=== PATIENT | female | born 1930 | race Caucasian/White ===

== ENCOUNTER 2016-09-19 09:10 | Emergency (ER) | payer MEDICARE, OTHER ==
[2013-09-24 12:06] VITALS: BMI 23.4
[~2016-09-19 09:10] MED LIST: AMPICILLIN TRI500 MG PO; FLAGYL500 MG PO; HYZAAR 50-12.51 TAB PO; KLOR-CON20 MEQ/PKT PO; LEVAQUIN250 MG PO; NORCO 10/325 TA1 TA1 PO; PRAVACHOL20 MG PO; PROTONIX40 MG PO; SOMA350 MG PO; XANAX0.5 MG PO
== END 2016-09-19 10:53 | disposition home or self-care (01) ==
LOC: D.ER 09:10
DX: M54.5 Low back pain (principal); M51.36 Other intervertebral disc degeneration, lumbar region; I10 Essential (primary) hypertension

== ENCOUNTER 2016-09-26 22:54 | Emergency (ER) | payer MEDICARE, OTHER, BC ==
[2013-09-24 12:06] VITALS: BMI 23.4
== END 2016-09-26 23:38 | disposition home or self-care (01) ==
LOC: D.ER 22:54
DX: M54.5 Low back pain (principal); M62.830 Muscle spasm of back; I10 Essential (primary) hypertension

== ENCOUNTER → 2016-10-09 | Emergency (ER) | payer MEDICARE, OTHER, BC ==
[2013-09-24 12:06] VITALS: BMI 23.4
== END ==
LOC: D.ER 12:19
DX: G89.29 Other chronic pain (principal); M62.838 Other muscle spasm; I10 Essential (primary) hypertension

== ENCOUNTER 2017-01-04 11:51 | Emergency (ER) | payer MEDICARE, BC ==
[2013-09-24 12:06] VITALS: BMI 23.4
== END 2017-01-04 14:10 | disposition home or self-care (01) ==
LOC: D.ER 11:51
DX: M54.5 Low back pain (principal); M62.838 Other muscle spasm; I10 Essential (primary) hypertension